=== PATIENT | female | born 1975 | race Caucasian/White ===

== ENCOUNTER → 2016-07-19 | Outpatient (CLI) | payer OTHER ==
--- NOTE | 2016-07-19 11:35 | REP ---
CT LUMBAR SPINE WITHOUT CONTRAST: 07/19/2016. Comparison: x-ray 04/23/2016, MRI lumbar spine 03/24/2016. 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 Technique: Axial soft-tissue and bone images from T11-12 through S2 with coronal and sagittal reconstructions. Findings: There has been posterior fusion with pedicle screws and arch bars from L4-S1 on each side with hardware intact and unchanged in appearance from radiographs and MRI last fall. There are disc spacer devices and anterior fusion with metallic components into the L4-5 and L5-S1 levels and grossly unchanged from radiographs. Alignment shows very mild lumbar lordosis. Disc space heights from T11-12 through L3-4 are preserved. Vertebral body heights are normal. The T11-12 through L2-3 disc levels show no bulge or herniation and no spinal or foraminal stenosis. At L3-4, there is minimal disc bulge flattening ventral thecal sac but not causing any significant spinal or foraminal stenosis. At the L4-5 level, there is a mild broad-based disc bulge but the cross-sectional area of the canal appears ample. Foramina have adequate perineural fat. At L5-S1, there is no visible central canal or foraminal stenosis. I do not see definite nerve root compression. No other significant finding. Impression: 1. Anterior and posterior lumbar fusion from L4-S1 with pedicle screws and arch bars posteriorly and disc spacers at L4-5 and L5-S1 centrally and anteriorly with fixation components from the disc level extending into the vertebral body at those two levels. Alignment unchanged. Minimal degenerative disc disease at levels described. No foraminal encroachment at any level. Signed by Lamberto Hernandez MD 07/19/2016 05:08 P
== END ==
LOC: M RAD 09:46
PROVIDERS: ATTEND Neurological Surgery
DX: M96.0 Pseudarthrosis after fusion or arthrodesis (principal)

== ENCOUNTER → 2016-08-16 | Outpatient (REF) | payer OTHER | LOC: M LABNEURO 14:45 | PROVIDERS: ATTEND Psychiatry & Neurology Neurology | DX: Z13.29 Encounter for screening for other suspected endocrine disorder (principal) ==

== ENCOUNTER 2016-08-30 09:22 | Emergency (ER) | payer OTHER ==
[~2016-08-30] VITALS: Ht 165.1 cm; Wt 61.2 kg
[2016-08-30] MEDS ORDERED: HYDR-3713 PO (09:32)
[2016-08-30] MEDS ORDERED: ONDANSETRON 4MG/2ML VIAL (J2405) IV ONE (10:15)
[2016-08-30] MEDS ORDERED: KETOROLAC 30 MG/ML VIAL (J1885) IV ONE (10:15)
[2016-08-30] MEDS ORDERED: NS 1,000 ML IV ONE (10:15)
[2016-08-30 10:41] LABS: BASO % 0.3 % (0.0-1.0); EOS # 0.3 K/mm3 (0.0-0.50); EOS % 1.8 % (0.0-3.0); LARGE UNSTAINED CELL # 0.2 K/mm3 (0.0-0.4); LARGE UNSTAINED CELL % 1.1 % (0.0-4.0); LYMPH # 1.4 K/mm3 (1.5-4.5); LYMPH % 8.9 % (24.0-44.0); MEAN CORPUSCULAR HEMOGLOBIN 33.3 pg (27.0-33.0); MEAN CORPUSCULAR HGB CONC 33.2 g/dl (32.0-36.5); MEAN CORPUSCULAR VOLUME 100.1 fl (80.0-96.0); MONO # 0.5 K/mm3 (0.0-0.8); MONO % 3.3 % (0.0-5.0); NEUTROPHILS # 12.2 K/mm3 (1.8-7.7); NEUTROPHILS % 84.6 % (36.0-66.0); PLATELET COUNT, AUTOMATED 304 k/mm3 (150-450); RED CELL DISTRIBUTION WIDTH 12.7 % (11.5-14.5); WHITE BLOOD COUNT 14.4 K/mm3 (4.0-10.0)
[2016-08-30] MEDS ORDERED: MORPHINE 2 MG/ML 1ML SYRINGE IV ONE (11:15)
[2016-08-30 11:24] LABS: ALBUMIN 3.7 GM/DL (3.2-5.2); ALBUMIN/GLOBULIN RATIO 1.23 (1.00-1.93); ALKALINE PHOSPHATASE 64 U/L (45-117); ALT/SGPT 15 U/L (12-78); ANION GAP 8 MEQ/L (8-16); AST/SGOT 9 U/L (15-37); BILIRUBIN,DIRECT 0.1 MG/DL (0.0-0.2); BILIRUBIN,TOTAL 0.4 MG/DL (0.2-1.0); BLOOD UREA NITROGEN 9 MG/DL (7-18); CALCIUM LEVEL 8.7 MG/DL (8.5-10.1); CARBON DIOXIDE LEVEL 26 MEQ/L (21-32); CHLORIDE LEVEL 108 MEQ/L (98-107); GLOMERULAR FILTRATION RATE > 60.0 (>58); GLUCOSE, FASTING 86 MG/DL (70-105); POTASSIUM SERUM 3.9 MEQ/L (3.5-5.1); SODIUM LEVEL 142 MEQ/L (136-145); TOTAL PROTEIN 6.7 GM/DL (6.4-8.2)
--- NOTE | 2016-08-30 11:34 | REP ---
RIGHT UPPER QUADRANT ULTRASOUND: Real-time sonographic evaluation of the right upper quadrant performed. The gallbladder demonstrates no evidence of intraluminal sludge or calculi, wall thickening or pericholecystic fluid. There is no intrahepatic or extrahepatic biliary dilatation, common bile duct measuring 4 mm in diameter. Liver and pancreas demonstrate homogeneous echotexture with no gross mass, pancreatic tail not well seen due to overlying bowel gas. Right kidney demonstrates no hydronephrosis or nephrolithiasis with normal size at 10 cm in length. IMPRESSION: Negative right upper quadrant ultrasound. Signed by Jeffry Soto MD 08/30/2016 08:08 P
[2016-08-30] MEDS ORDERED: ISOVUE-370 76% 100ML VIAL (Q9967) As Ordered ONE (11:40)
--- NOTE | 2016-08-30 12:19 | REP ---
REASON: Right-sided abdominal pain. COMPARISON: None. CONTRAST UTILIZED: 100 mL [id number]. The lung bases are clear. The liver, gallbladder, spleen, pancreas, adrenal glands, and kidneys are within normal limits. The abdominal aorta and para-aortic regions are within normal limits. The bowel loops and their mesenteries are within normal limits. There is some decreased density seen in the mock of the stomach body, remembering that the stomach is extremely poorly evaluated by CT. There is no evidence of free fluid or free air in the abdomen. The abdominal aorta and para-aortic regions are within normal limits. CT PELVIS: There is no free fluid or free air seen in the pelvis. There is no mass or adenopathy. The bowel loops and their mesenteries are within normal limits. Bone window technique throughout the exam shows the osseous structures to be within normal limits for the patient's age. Transpedicular screws are seen L4 through S1 inclusive bilaterally. IMPRESSION: No definite evidence of acute disease, however, findings involving the stomach. I cannot rule out the possibility of stomach wall edema, which cannot be further assessed with CT. If the patient has symptoms referable to the upper GI tract, then EGD may be indicated. Correlate clinically. Other findings as described above. Signed by Placido An DO 08/30/2016 02:15 P
[2016-08-30] MEDS ORDERED: GI COCKTAIL 50ML BTL(HYOSCYAMINE/MAALOX/LIDOCAINE VISCOUS)(1:3:1) PO ONE (12:45)
[2016-08-30] MEDS ORDERED: OMEP40CA2 PO (12:45)
[2016-08-30 12:46] VITALS: BP 115/69
== END 2016-08-30 12:49 | disposition home or self-care (01) ==
LOC: M ED 10:31
DX: K29.00 Acute gastritis without bleeding (principal); M54.9 Dorsalgia, unspecified; Z87.59 Personal history of other complications of pregnancy, childbirth and the puerperium; F17.200 Nicotine dependence, unspecified, uncomplicated
CPT/HCPCS: 36415; 74177; 76705; 80048; 80076; 81001; 81025; 83690; 85025; 96374; 96375; 99283; J1885; J2405; Q9967

== ENCOUNTER 2017-03-19 17:45 | Emergency (ER) | payer OTHER ==
[~2017-03-19] VITALS: Ht 165.1 cm; Wt 59.1 kg
[~2017-03-19 17:45] MED LIST: HYDR-3713 PO; OMEP40CA2 PO
[2017-03-19] MEDS ORDERED: PROZ20CA11 PO (17:56)
[2017-03-19] MEDS ORDERED: ZANA4CAP PO (17:56)
[2017-03-19] MEDS ORDERED: CEPH500C PO (17:59)
[2017-03-19] MEDS ORDERED: TRAZ50TA11 PO (17:59)
[2017-03-19] MEDS ORDERED: ONDANSETRON 4MG/2ML VIAL (J2405) IV ONE (18:30)
[2017-03-19] MEDS ORDERED: MORPHINE 4 MG/ML 1ML SYRINGE IV ONE ×2 (18:30→20:15)
[2017-03-19 18:53] LABS: BASO # 0.1 10^3/uL (0.0-0.2); BASO % 0.3 % (0.0-1.0); EOS # 0.2 10^3/uL (0.0-0.50); EOS % 1.3 % (0.0-3.0); IMMATURE GRANULOCYTE % 0.5 % (0-0); LYMPH # 2.3 10^3/uL (1.5-4.5); LYMPH % 14.2 % (24.0-44.0); MEAN CORPUSCULAR HEMOGLOBIN 32.1 pg (27.0-33.0); MEAN CORPUSCULAR HGB CONC 32.9 g/dl (32.0-36.5); MEAN CORPUSCULAR VOLUME 97.5 fl (80.0-96.0); MONO # 1.2 10^3/uL (0.0-0.8); MONO % 7.5 % (0.0-5.0); NEUTROPHILS # 12.2 10^3/uL (1.8-7.7); NEUTROPHILS % 76.2 % (36.0-66.0); PLATELET COUNT, AUTOMATED 297 10^3/uL (150-450); RED CELL DISTRIBUTION WIDTH 12.9 % (11.5-14.5); WHITE BLOOD COUNT 15.9 10^3/uL (4.0-10.0)
[2017-03-19 19:06] LABS: ALBUMIN 4.3 GM/DL (3.2-5.2); ALKALINE PHOSPHATASE 75 U/L (45-117); ALT/SGPT 16 U/L (12-78); ANION GAP 7 MEQ/L (8-16); AST/SGOT 8 U/L (7-37); BILIRUBIN,DIRECT 0.1 MG/DL (0.0-0.2); BILIRUBIN,TOTAL 0.4 MG/DL (0.2-1.0); BLOOD UREA NITROGEN 6 MG/DL (7-18); CALCIUM LEVEL 9.3 MG/DL (8.5-10.1); CARBON DIOXIDE LEVEL 27 MEQ/L (21-32); CHLORIDE LEVEL 104 MEQ/L (98-107); CREATININE FOR GFR 0.73 MG/DL (0.55-1.02); GLOMERULAR FILTRATION RATE > 60.0 (>58); GLUCOSE, FASTING 95 MG/DL (70-105); POTASSIUM SERUM 3.3 MEQ/L (3.5-5.1); SODIUM LEVEL 138 MEQ/L (136-145); TOTAL PROTEIN 7.6 GM/DL (6.4-8.2)
[2017-03-19 19:15] LABS: ERYTHROCYTE SEDIMENTATION RATE 6 mm/hr (0-20)
[2017-03-19] MEDS ORDERED: ISOVUE-370 76% 100ML VIAL (Q9967) As Ordered ONE (19:20)
--- NOTE | 2017-03-19 19:50 | REPUSA ---
CT of the lumbar spine without contrast Clinical history: Pain. Technique: Multiple axial CT images were obtained through the lumbar spine without administration of contrast. Coronal and sagittal 3-D reconstructed images were also obtained. Findings: The lumbar vertebral bodies are in satisfactory positioning and alignment. Surgical fusion changes wi th interpedicular screws from L4 through S1 are stable and intact. No fractures or dislocations are d emonstrated. Intervertebral disc spaces are otherwise well-maintained. There is no evidence of facet subluxation. The neural foramen appear grossly patent. The spinal canal demonstrates normal caliber a nd contour without evidence of spinal stenosis. The surrounding soft tissues are within normal limits . Impression: No acute findings. Surgical fusion changes are intact.
--- NOTE | 2017-03-19 21:50 | REPUSA ---
Clinical history: pain status post spinal stimulator removal. Findings: Real-time ultrasound imaging of the posterior soft tissues was performed. Normal heterogene ous fibroglandular tissue is noted. No focal defined mass or cystic lesion is appreciated. No evidenc e of calcifications are appreciated. No other gross abnormalities. Impression: Unremarkable ultrasound examination. No fluid collections identified.
[2017-03-19] MEDS ORDERED: PERC5TAB12 PO ×2 (21:58→22:14)
[2017-03-19] MEDS ORDERED: CLEO300C2 PO ×2 (21:58→22:14)
[2017-03-19] MEDS ORDERED: OXYCODONE/APAP 5MG/325MG(BULK FOR ED) 1 TABLET PO ONE (22:00)
[2017-03-19 22:11] VITALS: BP 128/80
== END 2017-03-19 22:22 | disposition home or self-care (01) ==
LOC: M ED 17:45
DX: M54.5 Low back pain (principal); F17.200 Nicotine dependence, unspecified, uncomplicated; Z98.1 Arthrodesis status; Z79.899 Other long term (current) drug therapy
CPT/HCPCS: 72132; 76705; 80048; 80076; 85025; 85652; 86140; 87040; 96374; 96375; 96376; 99284; J2405; Q9967